=== PATIENT | male | born 1985 | race African-American/Black ===

== ENCOUNTER 2016-07-15 21:59 | Emergency (ER) | payer OTHER ==
[~2016-07-15] VITALS: Ht 180.3 cm; Wt 84.1 kg
[2016-07-15 22:06] VITALS: BP 105/62
[2016-07-16] MEDS ORDERED: KEFLEX500 MG PO (00:46)
== END 2016-07-16 01:32 ==
LOC: EME 21:59
DX: S62.631B Displaced fracture of distal phalanx of left index finger, initial encounter for open fracture (principal); S60.152A Contusion of left little finger with damage to nail, initial encounter; W20.8XXA Other cause of strike by thrown, projected or falling object, initial encounter; Y92.148 Other place in prison as the place of occurrence of the external cause; Y93.B9 Activity, other involving muscle strengthening exercises; Z87.891 Personal history of nicotine dependence
CPT/HCPCS: 73130; 99281; 99285